=== PATIENT | female | born 1995 | race Caucasian/White ===

== ENCOUNTER 2017-01-28 18:00 | Emergency (ER) | payer MEDICAID ==
[~2017-01-28] VITALS: Ht 167.6 cm; Wt 82.9 kg
[2017-01-28 19:28] LABS: ASPARTATE AMINO TRANSFERASE 11 U/L (15-37); BLOOD UREA NITROGEN 9 mg/dL (7-18)
[2017-01-28] MEDS ORDERED: OMNIPAQUE 350 MG/ML, 100ML BOTTLE ONE (21:11)
[2017-01-28] MEDS ORDERED: MAALOX/HYOSCYAMINE/LIDOCAINE 45 ML BOTTLE PO ONE (21:30)
[2017-01-28] MEDS ORDERED: MAALOX/HYOSCYAMINE/LIDOCAINE 45 ML BOTTLE ONE (22:00)
[2017-01-28] MEDS ORDERED: MORPHINE SULFATE 4 MG/ML, 1ML ONE (22:09)
[2017-01-28] MEDS ORDERED: ONDANSETRON 2MG/ML, 2ML ONE (22:09)
[2017-01-28] MEDS: MORPHINE SULFATE 4 MG/ML, 1ML IVPush ONE ×2 (22:13→22:53)
[2017-01-28] MEDS ORDERED: SODIUM CHLORIDE 0.9% 1,000ML IVBOLUS ONE (22:30)
[2017-01-28] MEDS ORDERED: ONDANSETRON 2MG/ML, 2ML IVPush ONE (22:30)
[2017-01-28 23:37] VITALS: BP 114/76
== END 2017-01-28 23:40 | disposition home or self-care (01) ==
LOC: ED 23:37
DX: K29.00 Acute gastritis without bleeding (principal); G43.909 Migraine, unspecified, not intractable, without status migrainosus; F41.1 Generalized anxiety disorder; R10.13 Epigastric pain; Z90.49 Acquired absence of other specified parts of digestive tract
CPT/HCPCS: 36415; 71020; 74177; 76700; 80053; 84703; 85025; 96361; 96374; 96375; 99285; J2405; J7030; Q9967

== ENCOUNTER 2017-10-10 11:47 | Emergency (ER) | payer MEDICAID ==
[~2017-10-10] VITALS: Ht 167.6 cm; Wt 84.5 kg
[2017-10-10 13:23] VITALS: BP 119/55
== END 2017-10-10 14:01 | disposition home or self-care (01) ==
LOC: ED 13:43
DX: R07.89 Other chest pain (principal); G43.909 Migraine, unspecified, not intractable, without status migrainosus
CPT/HCPCS: 71020; 93005; 99284

== ENCOUNTER 2019-09-27 11:25 | Emergency (ER) | payer MEDICAID ==
[~2019-09-27] VITALS: Ht 167.6 cm; Wt 82.0 kg
--- NOTE | 2019-09-27 11:25 | NUR ---
DIGITAL MEDIA DIRECTOR: L&D RN aware of patient, will evaluate when patient is roomed.
[2019-09-27 13:39] VITALS: BP 104/64
--- NOTE | 2019-09-27 13:58 | NUR ---
TASK RN: PT SITTING UP IN CODY BAIRD NOTED. REQUESTING TYLENOL FOR [place]. ERP AWARE.
[2019-09-27] MEDS ORDERED: ACETAMINOPHEN 325 MG TABLET ONE (14:26)
[2019-09-27] MEDS ORDERED: ACETAMINOPHEN 325 MG TABLET PO ONE (14:30)
--- NOTE | 2019-09-27 14:39 | NUR ---
TASK RN: DC EDUCATION PROVIDED, PT DEMONSTRATES UNDERSTANDING. PT AMBULATED STEADILY TO DC WITH RN. SISTER TO TRANSPORT PT HOME
== END 2019-09-27 14:41 | disposition home or self-care (01) ==
LOC: ED 12:39
DX: O9A.212 Injury, poisoning and certain other consequences of external causes complicating pregnancy, second trimester (principal); S09.90XA Unspecified injury of head, initial encounter; Z3A.22 22 weeks gestation of pregnancy; W01.0XXA Fall on same level from slipping, tripping and stumbling without subsequent striking against object, initial encounter; Y93.89 Activity, other specified; Y92.009 Unspecified place in unspecified non-institutional (private) residence as the place of occurrence of the external cause; Y99.8 Other external cause status
CPT/HCPCS: 70450; 99284

== ENCOUNTER 2020-01-28 21:22 | Outpatient (CLI) | payer MEDICAID ==
[~2020-01-28] VITALS: Ht 167.6 cm; Wt 81.8 kg
[2020-01-28 21:56] VITALS: BP 118/72
[2020-01-28] MEDS ORDERED: MEPERIDINE/PF 50 MG/ML ONE (22:24)
[2020-01-28] MEDS ORDERED: MEPERIDINE/PF 25MG/0.5ML IM PRN (22:30)
[2020-01-28] MEDS ORDERED: PROMETHAZINE 25 MG/ML, 1ML IM ONE (22:30)
== END 2020-01-28 23:13 | disposition home or self-care (01) ==
LOC: LDOP 21:22
PROVIDERS: ATTEND Obstetrics & Gynecology
DX: O46.93 Antepartum hemorrhage, unspecified, third trimester (principal); F32.9 Major depressive disorder, single episode, unspecified; Z3A.39 39 weeks gestation of pregnancy
CPT/HCPCS: 59025; 96372; 99211; J2175; J2550; G0463

== ENCOUNTER 2020-01-29 09:39 | Inpatient (IN) | payer MEDICAID ==
[~2020-01-29] VITALS: Ht 167.6 cm; Wt 81.8 kg
[2020-01-29] MEDS ORDERED: OXYTOCIN 30U/ 0.9% NaCL 500ML 500 ML IV ONE (09:45)
[2020-01-29] MEDS: LACTATED RINGERS 1,000 ML IV SCH ×4 (10:00→17:45)
[2020-01-29] MEDS ORDERED: TERBUTALINE 1 MG/ML, 1ML IVPush PRN (10:00)
[2020-01-29] MEDS ORDERED: FENTANYL PF 100 MCG/2ML IV PRN (10:00)
[2020-01-29] MEDS ORDERED: TERBUTALINE 1 MG/ML, 1ML SQ PRN (10:00)
[2020-01-29] MEDS ORDERED: CALCIUM CARBONATE 500 MG TAB.CHEW PO PRN ×2 (10:00→17:30)
[2020-01-29] MEDS ORDERED: FENTANYL PF 100 MCG/2ML IVPush PRN (10:00)
[2020-01-29] MEDS ORDERED: LIDOCAINE 1%, 20ML ONE (10:01)
[2020-01-29] MEDS ORDERED: NEWBORN KIT ONE (10:01)
[2020-01-29] MEDS ORDERED: OXYTOCIN 30U/ 0.9% NaCL 500ML 500 ML ONE (10:01)
[2020-01-29] MEDS ORDERED: MISOPROSTOL 200 MCG TABLET ONE (10:01)
[2020-01-29 10:20] LABS: BASOPHILS # (AUTO) 0.03 x10^3/uL (0-0.1); BASOPHILS % (AUTO) 0 % (0-1); EOSINOPHILS # (AUTO) 0.09 x10^3/uL (0-0.4); EOSINOPHILS % (AUTO) 1 % (1-7); LYMPHOCYTES # (AUTO) 1.84 x10^3/uL (1-3.4); LYMPHOCYTES % (AUTO) 17 % (22-44); MD NO; MEAN CORPUSCULAR HEMOGLOBIN 27.2 pg (27.0-34.8); MEAN CORPUSCULAR HGB CONC 33.4 g/dL (32.4-35.8); MEAN CORPUSCULAR VOLUME 81.6 fL (80-100); MEAN PLATELET VOLUME 7.2 fL (7.4-10.4); MONOCYTES # (AUTO) 0.51 x10^3/uL (0.2-0.8); MONOCYTES % (AUTO) 5 % (2-9); NEUTROPHILS # (AUTO) 8.39 x10^3/uL (1.8-6.8); NEUTROPHILS % (AUTO) 77 % (42-75); PLATELET COUNT 387 x10^3/uL (130-400); RED BLOOD COUNT 3.94 x10^6/uL (3.82-5.3)
[2020-01-29] MEDS ORDERED: PENICILLIN GK 5,000,000 UNITS in DEXTROSE 5% 100 ML IVPB ONE (10:30)
[2020-01-29] MEDS ORDERED: FENTANYL PF 500 MCG, BUPIVACAINE/PF 0.5%, 30ML 62.5 ML in SODIUM CHLORIDE 0.9% 177.5 ML EPIDCONT SCH ×2 (10:48→11:47)
[2020-01-29] MEDS ORDERED: LACTATED RINGERS 1,000 ML IV SCH (11:47)
[2020-01-29] MEDS ORDERED: EPHEDRINE 50 MG/ML, 1ML IVPush PRN (12:00)
[2020-01-29] MEDS ORDERED: LACTATED RINGERS 1,000 ML IVBOLUS PRN (12:00)
[2020-01-29] MEDS ORDERED: NALOXONE 0.4 MG/ML, 1ML IVPush PRN (12:00)
[2020-01-29] MEDS: D5%-LACTATED RINGERS 1,000 ML IV SCH ×2 (12:30→21:14)
[2020-01-29] MEDS: PENICILLIN GK 2,500,000 UNITS in DEXTROSE 5% 100 ML IVPB SCH ×2 (14:52→18:30)
[2020-01-29] MEDS: OXYTOCIN 30U/ 0.9% NaCL 500ML 500 ML IV SCH (17:18)
[2020-01-29] MEDS ORDERED: SIMETHICONE 80 MG CHEW TAB PO PRN (17:30)
[2020-01-29] MEDS ORDERED: ACETAMINOPHEN 325 MG TABLET PO PRN (17:30)
[2020-01-29] MEDS ORDERED: ONDANSETRON 2MG/ML, 2ML IV PRN (17:30)
[2020-01-29] MEDS ORDERED: MISOPROSTOL 200 MCG TABLET PR PRN (17:30)
[2020-01-29] MEDS ORDERED: IBUPROFEN 800 MG TABLET ONE (17:47)
[2020-01-29] MEDS ORDERED: OXYcodone IR 5MG TABLET ONE (17:47)
[2020-01-29] MEDS: OXYcodone IR 5MG TABLET PO PRN (17:49)
[2020-01-29] MEDS: IBUPROFEN 800 MG TABLET PO PRN (17:49)
[2020-01-29 19:30] VITALS: BP 114/71
[2020-01-30] VITALS: BP 102/65
[2020-01-30 01:01] LABS: BASOPHILS # (AUTO) 0.05 x10^3/uL (0-0.1); BASOPHILS % (AUTO) 0 % (0-1); EOSINOPHILS # (AUTO) 0.04 x10^3/uL (0-0.4); EOSINOPHILS % (AUTO) 0 % (1-7); LYMPHOCYTES # (AUTO) 2.58 x10^3/uL (1-3.4); LYMPHOCYTES % (AUTO) 15 % (22-44); MD NO; MEAN CORPUSCULAR HEMOGLOBIN 27.2 pg (27.0-34.8); MEAN CORPUSCULAR HGB CONC 33.2 g/dL (32.4-35.8); MEAN CORPUSCULAR VOLUME 81.9 fL (80-100); MEAN PLATELET VOLUME 7.2 fL (7.4-10.4); MONOCYTES # (AUTO) 0.97 x10^3/uL (0.2-0.8); MONOCYTES % (AUTO) 6 % (2-9); NEUTROPHILS # (AUTO) 13.11 x10^3/uL (1.8-6.8); NEUTROPHILS % (AUTO) 78 % (42-75); PLATELET COUNT 340 x10^3/uL (130-400); RED BLOOD COUNT 3.38 x10^6/uL (3.82-5.3); RED CELL DISTRIBUTION WIDTH 14.2 % (9.6-15.2)
[2020-01-30] MEDS: LACTATED RINGERS 1,000 ML IV SCH ×6 (01:18→23:18)
[2020-01-30] MEDS: OXYcodone IR 5MG TABLET PO PRN ×2 (01:53→14:49)
[2020-01-30] MEDS: IBUPROFEN 800 MG TABLET PO PRN ×2 (01:53→14:48)
[2020-01-30] MEDS: OXYTOCIN 30U/ 0.9% NaCL 500ML 500 ML IV SCH ×3 (03:18→23:18)
[2020-01-30 03:40] VITALS: BP 102/67
[2020-01-30 07:36] VITALS: BP 98/65
[2020-01-30] MEDS: PRENATAL VIT/IRON/FA 1 EACH TABLET PO SCH (07:47)
[2020-01-30] MEDS: DOCUSATE 100 MG CAPSULE PO PRN (07:47)
[2020-01-30 12:13] VITALS: BP 106/66
[2020-01-30 15:42] VITALS: BP 111/75
[2020-01-30 19:20] VITALS: BP 100/67
[2020-01-31] MEDS: LACTATED RINGERS 1,000 ML IV SCH ×3 (01:18→10:19)
[2020-01-31] MEDS: DOCUSATE 100 MG CAPSULE PO PRN (01:45)
[2020-01-31 08:10] VITALS: BP 101/66
[2020-01-31] MEDS: OXYTOCIN 30U/ 0.9% NaCL 500ML 500 ML IV SCH (09:18)
[2020-01-31] MEDS: PRENATAL VIT/IRON/FA 1 EACH TABLET PO SCH (10:20)
[2020-01-31] MEDS: IBUPROFEN 800 MG TABLET PO PRN (10:20)
[2020-01-31] MEDS ORDERED: IBUP-1222 PO (10:46)
[2020-01-31] MEDS ORDERED: MEASLES,MUMPS&RUBELLA VACC/PF 0.5 ML SQ-VACC ONE (11:00)
[2020-01-31] MEDS: OXYcodone IR 5MG TABLET PO PRN (11:31)
== END 2020-01-31 12:05 | disposition home or self-care (01) | DRG 806 ==
LOC: LDOP 09:39 → LDIP 10:02 → 2NW 18:43
PROVIDERS: ADMIT Obstetrics & Gynecology; ATTEND Obstetrics & Gynecology
PROC: 10E0XZZ Delivery of Products of Conception, External Approach (ICD-10-PCS; principal; 2020-01-29)
PROC: 0KQM0ZZ Repair Perineum Muscle, Open Approach (ICD-10-PCS; 2020-01-29)
PROC: 0UQMXZZ Repair Vulva, External Approach (ICD-10-PCS; 2020-01-29)
PROC: 3E0R3BZ Introduction of Anesthetic Agent into Spinal Canal, Percutaneous Approach (ICD-10-PCS; 2020-01-29)
PROC: 00HU33Z Insertion of Infusion Device into Spinal Canal, Percutaneous Approach (ICD-10-PCS; 2020-01-29)
DX: O99.824 Streptococcus B carrier state complicating childbirth (principal); D62 Acute posthemorrhagic anemia; Z37.0 Single live birth; O69.81X0 Labor and delivery complicated by cord around neck, without compression, not applicable or unspecified; Z88.8 Allergy status to other drugs, medicaments and biological substances; Z91.048 Other nonmedicinal substance allergy status; F32.9 Major depressive disorder, single episode, unspecified; F41.9 Anxiety disorder, unspecified; O99.344 Other mental disorders complicating childbirth; Z3A.39 39 weeks gestation of pregnancy; Z83.3 Family history of diabetes mellitus; O99.03 Anemia complicating the puerperium; O70.1 Second degree perineal laceration during delivery
CPT/HCPCS: 36415; J7121; 85025; 86592; 86850; 86900; G0378; J2540; J7120

== ENCOUNTER 2020-05-08 15:17 | Emergency (ER) | payer MEDICAID ==
[~2020-05-08] VITALS: Ht 167.6 cm; Wt 74.1 kg
[~2020-05-08 15:17] MED LIST: IBUP-1222 PO
--- NOTE | 2020-05-08 15:34 | NUR ---
ALEXIA MORALES AT BEDSIDE FOR ED EVAL.
[2020-05-08] MEDS ORDERED: ONDANSETRON ODT 4 MG PO ONE (16:00)
--- NOTE | 2020-05-08 16:03 | NUR ---
STRAIGHT CATH URINE SPECIMEN OBTAINED ON SECOND ATTEMPT W/O INCIDENT. WALKED TO LAB.
[2020-05-08 16:07] LABS: BASOPHILS # (AUTO) 0.06 x10^3/uL (0-0.1); BASOPHILS % (AUTO) 1 % (0-1); EOSINOPHILS # (AUTO) 0.11 x10^3/uL (0-0.4); EOSINOPHILS % (AUTO) 2 % (1-7); LYMPHOCYTES # (AUTO) 2.74 x10^3/uL (1-3.4); LYMPHOCYTES % (AUTO) 40 % (22-44); MD NO; MEAN CORPUSCULAR HEMOGLOBIN 25.8 pg (27.0-34.8); MEAN CORPUSCULAR HGB CONC 31.9 g/dL (32.4-35.8); MEAN CORPUSCULAR VOLUME 80.8 fL (80-100); MEAN PLATELET VOLUME 6.9 fL (7.4-10.4); MONOCYTES # (AUTO) 0.53 x10^3/uL (0.2-0.8); MONOCYTES % (AUTO) 8 % (2-9); NEUTROPHILS # (AUTO) 3.44 x10^3/uL (1.8-6.8); NEUTROPHILS % (AUTO) 50 % (42-75); PLATELET COUNT 409 x10^3/uL (130-400); RED BLOOD COUNT 4.62 x10^6/uL (3.82-5.3)
--- NOTE | 2020-05-08 16:12 | NUR ---
PT TO US.
[2020-05-08 16:15] LABS: ALANINE AMINOTRANSFERASE 13 U/L (12-78); ALBUMIN 3.6 g/dL (3.4-5.0); ANION GAP 6 mmol/L (5-15); CALCIUM 8.7 mg/dL (8.5-10.1); CHLORIDE 112 mmol/L (98-107); CREATININE 0.79 mg/dL (0.55-1.02)
[2020-05-08 16:19] LABS: ALKALINE PHOSPHATASE 120 U/L (45-117); BILIRUBIN,TOTAL 0.4 mg/dL (0.2-1.0); TOTAL PROTEIN 7.5 g/dL (6.4-8.2)
[2020-05-08 16:29] LABS: MICROSCOPIC NOT IND
[2020-05-08 17:05] VITALS: BP 122/62
--- NOTE | 2020-05-08 17:19 | NUR ---
Patient given discharge instructions and they have confirmed that they understand the instructions. Patient ambulatory with steady gait.
== END 2020-05-08 17:20 | disposition home or self-care (01) ==
LOC: ED 17:01
DX: N92.0 Excessive and frequent menstruation with regular cycle (principal); Z90.49 Acquired absence of other specified parts of digestive tract
CPT/HCPCS: 36415; 76830; 80053; 81003; 84703; 85025; 99284